=== PATIENT | male | born 1950 | race Caucasian/White ===

== ENCOUNTER 2024-02-18 10:25 | Day surgery (SDC) | payer OTHER ==
[~2024-02-18] VITALS: Ht 172.7 cm; Wt 82.5 kg
[~2024-02-18 10:25] MED LIST: Balanced Salt Epinephrine Irrigation Solution 500 mL IR SCH; HYDACE10B PO; Lidocaine HCl/Pf 1% 5 ML VIAL XX SCH; Moxifloxacin HCL 0.5 MG/0.1 ML 0.4MLSYR RIGHTEYE SCH; NS 500 ML IV ONE; PHENYLEPHRINE\\TROPICAMIDE\\TETRACAINE OPHTHALMIC DILATING SOLN RIGHTEYE PRN; Povidone-Iodine 450 DROP/30 ML Solution ONE; Povidone-Iodine 450 DROP/30 ML Solution RIGHTEYE SCH; Tetracaine HCl/Pf 0.5% Opth Soln 4 ml ONE
[2024-02-18] MEDS ORDERED: LOSA50 PO (11:26)
[2024-02-18] MEDS ORDERED: CLOP75 PO (11:27)
[2024-02-18] MEDS ORDERED: ASPI81CH PO (11:27)
[2024-02-18] MEDS ORDERED: NS 500 ML IV ONE (11:39)
[2024-02-18] MEDS ORDERED: Midazolam HCl 1MG / ML 2ML Vial ONE (12:17)
[2024-02-18 12:43] VITALS: BP 170/93
--- NOTE | 2024-02-18 12:47 | NUR ---
02/18/24 1247 ANKIT SAMANO PT ELEVATED; ANESTHESIOLOGIST NOTIFIED. PT HAS NO SYMPTOMS FEELS STEADY AND STABLE. OKD FOR DC
== END 2024-02-18 12:52 | disposition home or self-care (01) ==
LOC: ORSCSDS 10:25
PROVIDERS: Student in an Organized Health Care Education/Training Program
PROC: 08RJ3JZ Replacement of Right Lens with Synthetic Substitute, Percutaneous Approach (ICD-10-PCS; principal; 2024-02-18 12:00)
DX: H25.813 Combined forms of age-related cataract, bilateral (principal); I10 Essential (primary) hypertension; Z72.0 Tobacco use; Z79.02 Long term (current) use of antithrombotics/antiplatelets; Z79.899 Other long term (current) drug therapy
CPT/HCPCS: J2250; J7040; V2632

== ENCOUNTER 2024-02-26 10:50 | Day surgery (SDC) | payer OTHER ==
[~2024-02-26] VITALS: Ht 172.7 cm; Wt 83.0 kg
[~2024-02-26 10:50] MED LIST changes: +ASPI81CH PO; +CLOP75 PO; +LOSA50 PO; +Moxifloxacin HCL 0.5 MG/0.1 ML 0.4MLSYR LEFTEYE SCH; -Moxifloxacin HCL 0.5 MG/0.1 ML 0.4MLSYR RIGHTEYE SCH; +PHENYLEPHRINE\\TROPICAMIDE\\TETRACAINE OPHTHALMIC DILATING SOLN LEFTEYE PRN; -PHENYLEPHRINE\\TROPICAMIDE\\TETRACAINE OPHTHALMIC DILATING SOLN RIGHTEYE PRN; +Povidone-Iodine 450 DROP/30 ML Solution LEFTEYE SCH; -Povidone-Iodine 450 DROP/30 ML Solution RIGHTEYE SCH
[2024-02-26] MEDS ORDERED: NS 500 ML IV ONE (11:32)
--- NOTE | 2024-02-26 11:34 | NUR ---
02/26/24 1134 Daisy Daugherty LEFT EYE: PLACED TETRACAIN AT 1122, PLEDGET AT 1123.
[2024-02-26 12:40] VITALS: BP 160/95
--- NOTE | 2024-02-26 12:42 | NUR ---
02/26/24 1242 María Banuelos PROVIDER AWARE OF BP AND HR. SAID HR WAS LOW DURING PROCEURE TOO.
== END 2024-02-26 12:35 | disposition home or self-care (01) ==
LOC: ORSCSDS 10:50
PROVIDERS: Student in an Organized Health Care Education/Training Program
PROC: 08RK3JZ Replacement of Left Lens with Synthetic Substitute, Percutaneous Approach (ICD-10-PCS; principal; 2024-02-26 12:00)
DX: H25.812 Combined forms of age-related cataract, left eye (principal); Z96.1 Presence of intraocular lens; H11.001 Unspecified pterygium of right eye; I10 Essential (primary) hypertension; Z79.82 Long term (current) use of aspirin; Z79.899 Other long term (current) drug therapy
CPT/HCPCS: J7040; V2632

== ENCOUNTER 2025-06-01 08:50 | Emergency (ER) | payer OTHER ==
[~2025-06-01] VITALS: Ht 172.7 cm; Wt 81.7 kg
[~2025-06-01 08:50] MED LIST changes: -Balanced Salt Epinephrine Irrigation Solution 500 mL IR SCH; -Lidocaine HCl/Pf 1% 5 ML VIAL XX SCH; -Moxifloxacin HCL 0.5 MG/0.1 ML 0.4MLSYR LEFTEYE SCH; -NS 500 ML IV ONE; -PHENYLEPHRINE\\TROPICAMIDE\\TETRACAINE OPHTHALMIC DILATING SOLN LEFTEYE PRN; -Povidone-Iodine 450 DROP/30 ML Solution LEFTEYE SCH; -Povidone-Iodine 450 DROP/30 ML Solution ONE; -Tetracaine HCl/Pf 0.5% Opth Soln 4 ml ONE
[2025-06-01] MEDS ORDERED: ATOR10 PO (09:07)
[2025-06-01 09:38] LABS: BASOPHILS ABSOLUTE AUTO 0.08 K/mm3 (0.00-0.23); BASOPHILS PERCENT AUTO 1 % (0-2); EOSINOPHILS ABSOLUTE AUTO 0.27 K/mm3 (0.00-0.68); EOSINOPHILS PERCENT AUTO 2 % (0-6); Hematocrit 42.0 % (37.0-53.0); Hemoglobin 14.4 g/dL (13.5-17.5); IMMATURE GRAN ABSOLUTE AUTO 0.06 K/mm3 (0.00-0.10); IMMATURE GRAN PERCENT AUTO 0 % (0-1); LYMPHOCYTES ABSOLUTE AUTO 1.66 K/mm3 (0.84-5.20); LYMPHOCYTES PERCENT AUTO 12 % (21-46); MONOCYTES ABSOLUTE AUTO 1.18 K/mm3 (0.16-1.47); MONOCYTES PERCENT AUTO 9 % (4-13); Mean Corpuscular HGB Conc 34.3 g/dL (31.5-36.5); Mean Corpuscular Volume 93 fL (80-100); NEUTROPHILS ABSOLUTE AUTO 10.67 K/mm3 (1.96-9.15); NEUTROPHILS PERCENT AUTO 77 % (41-73); NRBC ABSOLUTE 0.00 K/mm3 (0.00-0.02); NRBC Auto 0.0 /100 WBC (0.0-0.2); Platelet Count 229 K/mm3 (150-400); RDW Coefficient Variation 13.0 % (11.7-14.2); RDW Standard Deviation 44.0 fL (35.1-46.3)
[2025-06-01 09:55] LABS: Alanine Aminotransfer (ALT/SGP 27.0 U/L (12-78); Albumin, Blood 3.6 g/dL (3.4-5.0); Albumin/Globulin Ratio 1.2 (0.8-1.8); Anion Gap 11.0 mmol/L (3-11); Aspartate Aminotrans (AST/SGOT 17.0 U/L (12-37); Bilirubin, Total 0.8 mg/dL (0.1-1.0); Blood Urea Nitrogen 11.0 mg/dL (8-24); CO2, Blood 25.0 mmol/L (21-32); Calcium, Blood 8.4 mg/dL (8.5-10.1); Chloride, Blood 108.0 mmol/L (98-108); Creatinine, Blood 0.99 mg/dL (0.60-1.20); Globulin, Blood 3.0 g/dL (2.2-4.0); Glucose, Blood 101.0 mg/dL (70-99); Magnesium, Blood 2.2 mg/dL (1.6-2.4); Potassium, Blood 3.7 mmol/L (3.5-5.5); Sodium, Blood 140.0 mmol/L (136-145); Total Protein, Blood 6.6 g/dL (6.4-8.2)
[2025-06-01] MEDS ORDERED: Morphine Sulfate 4 MG/1 ML Injection IV ONE (10:55)
[2025-06-01] MEDS ORDERED: NS 500 ML IV SCH (10:55)
[2025-06-01] MEDS ORDERED: NiCARdipine HCL 50 MG in NS 250 ML IV SCH (11:40)
[2025-06-01] MEDS ORDERED: Esmolol HCL 2500mg/250ml Prema 250 ML IV SCH (11:40)
[2025-06-01] MEDS ORDERED: HYDROmorphone HCl/Pf 1MG SYR IV ONE ×2 (11:45→12:15)
[2025-06-01] MEDS ORDERED: Ondansetron HCl 2 MG / ML 2ML Vial IV ONE (12:10)
[2025-06-01] MEDS ORDERED: Prochlorperazine Edisylate 10 mg Vial IV ONE (12:45)
[2025-06-01 13:00] VITALS: BP 112/72
== END 2025-06-01 13:15 | disposition home or self-care (01) ==
LOC: ER 08:50
PROVIDERS: Student in an Organized Health Care Education/Training Program
DX: I71.03 Dissection of thoracoabdominal aorta (principal); I10 Essential (primary) hypertension; Z79.82 Long term (current) use of aspirin; Z79.899 Other long term (current) drug therapy; E11.9 Type 2 diabetes mellitus without complications; E78.5 Hyperlipidemia, unspecified
CPT/HCPCS: 71045; 71260; 71275; 74174; 80053; 83735; 84484; 85025; 86140; 93005; 93010; 96365-59; 96367-59; 96368; 96375-59; 99285-25; A9270; J0780; J1171; J2270; J2405; J7030; J7050; Q9967